=== PATIENT | female | born 1955 | race Caucasian/White ===

== ENCOUNTER 2021-09-02 10:43 | Emergency (ER) | payer MEDICARE, SELFPAY ==
[2021-09-02] VITALS (7 sets, daily range): BP systolic 152–210; BP diastolic 99–117; PULSE 92–130; RESP 16–19; TEMP 36.8; O2SAT 98–99
--- NOTE | ~2021-09-02 | XR_ITS ---
EXAMINATION: XR shoulder RT min 2V DATE: 09/02/2021 16:40 INDICATION: Right shoulder pain. TECHNIQUE: 4 views of right shoulder were obtained. COMPARISON: None. FINDINGS: Bone alignment is normal. No fracture. There is mild osteoarthritis of glenohumeral joint a nd acromioclavicular joint. IMPRESSION: 1. Mild polyarticular osteoarthritis. Reviewed, dictated and finalized at location A.
--- NOTE | ~2021-09-02 | CT_ITS ---
EXAMINATION: CT cervical spine wo con DATE: 09/02/2021 16:42 INDICATION: Neck pain. TECHNIQUE: Computed tomography (CT) of the cervical spine was performed without intravenous contrast. Automated exposure control and iterative reconstruction technique were employed. The dose-length pro duct was 173.68 mGy-cm. COMPARISON: None FINDINGS: There is mild scarring lung apices. There is a 1 mm retrolisthesis of C6 on C7. Vertebral b trino heights are normal. There is moderately decreased disc height at C5-C6 and severely decreased dis c height at C6-C7. There is 9 degrees dextrocurvature of cervical spine. There are small bilateral ma stoid effusions. The following disc levels are specifically discussed: C2-C3: There is mild left uncovertebral joint osteoarthritis. There is severe bilateral facet joint o steoarthritis. There is mild left neural foraminal stenosis. There is no central canal stenosis. C3-C4: There is mild right and moderate left uncovertebral joint osteoarthritis. There is severe bila teral facet joint osteoarthritis. There is mild right and moderate left neural foraminal stenosis. Th ere is mild central canal stenosis. C4-C5: There is no uncovertebral joint osteoarthritis. There is severe left facet joint osteoarthriti s. There is mild left neural foraminal stenosis. There is no central canal stenosis. C5-C6: There is severe right and mild left uncovertebral joint osteoarthritis. There is mild right an d severe left facet joint osteoarthritis. There is moderate left neural foraminal stenosis. There is mild central canal stenosis. C6-C7: There is mild bilateral uncovertebral joint osteoarthritis. There is mild bilateral facet join t osteoarthritis. There is mild right neural foraminal stenosis. There is mild central canal stenosis . C7-T1: There is no uncovertebral joint osteoarthritis. There is severe bilateral facet joint osteoart hritis. There is mild bilateral neural foraminal stenosis. There is no central canal stenosis. IMPRESSION: 1. No fracture. 2. Severe cervical spondylosis. Reviewed, dictated and finalized at location A.
--- NOTE | ~2021-09-02 | XR_ITS ---
EXAMINATION: XR shoulder LT min 2V DATE: 09/02/2021 16:41 INDICATION: Left shoulder pain. TECHNIQUE: 4 views of left shoulder were obtained. COMPARISON: None. FINDINGS: Bone alignment is normal. No fracture. There is mild osteoarthritis of glenohumeral joint a nd acromioclavicular joint. IMPRESSION: 1. Mild polyarticular osteoarthritis. Reviewed, dictated and finalized at location A.
--- NOTE | 2021-09-02 14:01 | PC.NURSE ---
This contracts attorney called pt to triage bay for VS check and comfort measures. Offered ice pack, pt declined. Pt has high BP readings, pt states she has not seen a doctor for a very long time and is upset due to waiting so long. Denies any CP or SOB.
--- NOTE | 2021-09-02 15:34 | ECG_ITS ---
Measurements Intervals [place] Rate: 113 P: -5 HI: 183 QRS: 38 QRSD: 83 T: 21 QT: 330 QTc: 453 Interpretive Statements SINUS TACHYCARDIA BASELINE ARTIFACT- I, III, AVL, AVF ABNORMAL ECG Electronically Signed On 09-02-2021 20:10:18 CDT by Lincoln Peoples D.O.
[2021-09-02] MEDS: diazePAM INJ (*CRX) 10 MG/2 ML SYRINGE 5 MG IM (15:58)
[2021-09-02] MEDS: ACETAMINOPHEN 500 MG TABLET 1000 MG PO (15:58)
--- NOTE | 2021-09-02 16:01 | ED.NECK ---
HPI - Neck Pain/Injury General Chief Complaint: Neck Pain/Injury Stated Complaint: Neck Pain Time Seen by Provider: 09/02/21 15:10 Source: patient Mode of arrival: ambulatory Limitations: no limitations History of Present Illness HPI Narrative: This is a 66 year old female that presents to the ER for neck pain present over the last couple of weeks. Reports she slipped and fell backwards onto the floor. Reports since that time she has had pain in her neck. She has not been evaluated for this yet. She thinks she might of hit her head. Denies any loss of consciousness. Also reports some pain in her bilateral shoulders. Denies vision changes, vomiting, numbness, or weakness. Related Data Allergies Allergy/AdvReac Type Severity Reaction Status Date / Time No Known Allergies Allergy Verified 09/02/21 15:21 Review of Systems Review of Systems: CONSTITUTIONAL: Denies fever EYES: Denies visual changes CARDIOVASCULAR: Denies chest pain RESPIRATORY: Denies dyspnea. GASTROINTESTINAL: Denies vomiting MUSCULOSKELETAL: Reports back pain, joint pain, and myalgia. NEUROLOGIC: Denies numbness, or weakness. PSYCHIATRIC: Reports anxiety All systems reviewed & are unremarkable except as noted in HPI and below PMFSH Past Medical History Medical History (Updated 09/02/21 @ 18:18 by Sarah Garcia PA-C) No active medical problems Social History Social History (Updated 09/02/21 @ 16:04 by Sarah Garcia PA-C) Substance use: never Exam Narrative: GENERAL: Well-appearing, well-nourished, and in no acute distress. HEAD: Normocephalic, atraumatic. EYES: PERRLA and EOMI. ENT: Nares clear, no rhinorrhea or epistaxis. Mucous membranes moist. Oropharynx without tonsillar hypertrophy exudate or other lesions. Bilateral TMs pearly yanes non-bulging NECK: Supple. No adenopathy or masses. CHEST: Clear to auscultation. No respiratory distress. No wheezes rales or rhonchi HEART: Regular rate and rhythm. No murmur heard. Normal peripheral pulses. EXTREMITIES: Normal range of motion. No edema. Strength equal in bilateral upper extremities (5/5) SKIN: Warm, dry, no rash. NEURO: No focal deficits. Alert and oriented x3. Cranial nerves II through XII grossly intact PSYCH: Normal mood and affect Course Vital Signs Vital signs: Vital Signs Temperature 98.3 F 09/02/21 10:48 Pulse Rate 107 H 09/02/21 10:48 Respiratory Rate 16 09/02/21 10:48 Blood Pressure 204/110 H 09/02/21 10:48 Pulse Oximetry 99 09/02/21 10:48 Temperature 98.3 F 09/02/21 10:48 Pulse Rate 92 09/02/21 17:54 Respiratory Rate 17 09/02/21 17:54 Blood Pressure 172/99 H 09/02/21 17:54 Pulse Oximetry 98 09/02/21 17:54 MDM - Neck Pain/Injury MDM Narrative Medical decision making narrative: Patient presents to the emergency department after a fall a couple of weeks ago with neck pain. She is neurologically intact. CT scan cervical spine is without acute findings. Also reporting pain to her shoulders. No acute findings on shoulder x-rays. Patient incidentally noted to be hypertensive. She is asymptomatic. No previous history of this, although patient has not been to a doctor in years. CBC and metabolic panel without concerning findings. EKG without acute changes. Blood pressure initially 200 systolic. Given dose of clonidine. Most recent blood pressure 152/102. Spoke with Dr. Phipps about patient and work-up. Would like patient started on lisinopril and will follow up in clinic. Patient is stable and felt appropriate for further outpatient evaluation. She was given warnings to return to the ER Lab Data Attestation: I reviewed the patient's lab results. Result diagrams: 09/02/21 15:56 09/02/21 15:56 Labs: Lab Results 09/02/21 09/02/21 Range/Units 15:56 15:56 WBC 5.8 (4.5-10.0) K/mm3 RBC 4.58 (4.2-5.4) M/mm3 Hgb 14.1 (12.0-15.0) g/dL Hct 41.5 (37.0-47.0) % MCV 90.6 (80-100) fl [facility]
[2021-09-02 16:11] LABS: Basophils Percent Auto 0.5 % (0.2-1.2); Eosinophils Percent Auto 0.2 % (0-4.4); Hematocrit 41.5 % (37.0-47.0); Hemoglobin 14.1 g/dL (12.0-15.0); Immature Granulocyte Absolute 0.02 K/mm3 (0.00-0.031); Immature Granulocyte Percent A 0.3 % (0-0.5); Lymphocytes Absolute Auto 1.17 K/mm3 (0.9-3.2); Lymphocytes Percent Auto 20.2 % (18.3-44.2); Mean Corpuscular Hemoglobin 30.8 pg (26-34); Mean Corpuscular Volume 90.6 fl (80-100); Mean Platelet Volume 9.4 fl (7.4-10.4); Monocytes Absolute Auto 0.8 K/mm3 (0.1-0.6); Monocytes Percent Auto 13.3 % (2.6-8.5); Neutrophils Absolute Auto 3.8 K/mm3 (1.3-6.7); Neutrophils Percent Auto 65.5 % (45.5-73.1); Platelet Count Result 186 k/mm3 (150-375); Red Blood Count 4.58 M/mm3 (4.2-5.4); Red Cell Distribution Width 12.1 % (11.5-14.5); White Blood Count 5.8 K/mm3 (4.5-10.0)
[2021-09-02 16:22] LABS: Anion Gap 15 mmol/L (8-16); Blood Urea Nitrogen 6 mg/dL (7-17); Calcium 9.6 mg/dL (8.4-10.2); Carbon Dioxide 28 mmol/L (22-30); Chloride 91 mmol/L (98-107); Estimated CRCL calculation 101 ml/min; Estimated Glomerular Filt Rate > 60; Glucose 120 mg/dL (65-110); Potassium 3.5 mmol/L (3.4-5.0); Sodium 134 mmol/L (137-145)
[2021-09-02] MEDS: cloNIDine HCL 0.1 MG TABLET PO (16:51)
== END 2021-09-02 18:35 | disposition home or self-care (01) ==
PROVIDERS: Physician Assistant; Emergency Provider Emergency Medicine; PCP Family Medicine
DX: S16.1XXA Strain of muscle, fascia and tendon at neck level, initial encounter (principal); I10 Essential (primary) hypertension; W19.XXXA Unspecified fall, initial encounter
CPT/HCPCS: 36415; 72125; 73030; 80048; 85025; 93005; 96372; 99284; A9270; J3360

== ENCOUNTER 2021-10-22 02:37 | Day surgery (SDC) | payer MEDICARE, SELFPAY ==
[2021-10-09 13:24] VITALS: BMI 20.9
[2021-10-22 13:19] VITALS: BP 194/104; PULSE 104; RESP 18; TEMP 36.5; O2SAT 98
--- NOTE | 2021-10-22 13:20 | P.PNAN_ITS ---
Anes - Initial Pre Proc Eval Procedure: Operation Date: 10/22/21 14:00 Proposed Procedures p Colonoscopy - Freddy Hoyt MD Date/Time: 10/22/21 13:20 Surgeon: Freddy Hoyt MD Pre Op Diagnosis: positive cologuard Patient Data Age: 66 Gender: F Height: 1.68 m Weight: 53.6 kg Last Vital Signs Temp 97.7 F 10/22/21 13:19 Pulse 104 H 10/22/21 13:19 Resp 18 10/22/21 13:19 BP 194/104 H 10/22/21 13:19 Pulse Ox 98 10/22/21 13:19 Allergies Allergy/AdvReac Type Severity Reaction Status Date / Time No Known Allergies Allergy Verified 10/22/21 13:18 Home Medications Medication Instructions Recorded Confirmed Type atorvastatin 10 mg tablet 10 mg PO QHS #90 tablet 09/26/21 10/22/21 Rx lisinopril 20 mg tablet 20 mg PO DAILY #90 tablet 09/26/21 10/22/21 Rx meloxicam 7.5 mg tablet 7.5 mg PO BID PRN #60 tablet 10/15/21 10/22/21 Rx Patient hx anesthesia problems: none Family hx anesthesia problems: none Results Review: All pre-operative results and documents have been reviewed as part of the pre-operative evaluation. [facility] Past Medical History Medical History (Updated 09/26/21 @ 10:40 by Karey Carlisle NP) Arthritis Cervical spondylosis Hyperlipidemia Hypertension No active medical problems Surgical History Surgical History H/O section (~1984) History of removal of ovarian cyst (~1975) Family History Family History Father Mesothelioma Social History Social History Social History: caffeine-2 cups of coffee daily Smoking status: Never smoker Alcohol intake: current Drinks per week: 20 Alcohol use details: Beer-daily Substance use: never Living arrangements: with family Gender identity (if verbalized by the patient): Female Sexual Orientation (if Verbalized by the Patient): Straight or Heterosexual Spiritual care concerns: No Agree to blood products: Yes Anes - Eval Final PreProcedure Day of Procedure 10/22/21 13:20 Patient weight: normal Heart: regular rate and rhythm Lungs: clear to auscultation Airway: Mallampati scale class II Neurological: alert and oriented Last oral intake: >/= 8 hours ASA classification: III Emergent: no Anesthetic plan: proceed Anesthesia type and monitoring: general GIVS and standard monitoring Results Review: All pre-operative results and documents have been reviewed as part of the pre-operative evaluation. Informed Consent: The patient's anesthetic plan and its attendant risks and benefits were discussed with the patient/family/POA. Questions were solicited and answers provided to the satisfaction of the patient/family/POA.
[2021-10-22] MEDS: LACTATED RINGERS 1,000 ML 150 ML IV CONT (13:25)
--- NOTE | 2021-10-22 13:41 | P.CONGI_ITS ---
Assessment and Plan Assessment and plan (1) Positive colorectal cancer screening using Cologuard test: Code(s): R19.5 - Other fecal abnormalities Status: Acute Assessment and Plan: Patient had recent positive Cologuard test. For this reason screening colonoscopy will be arranged. Further recommendations will be given after colonoscopy GI Consult Note Consult date/time: 10/22/21 13:41 HPI: Jacqui Ochoa is a 66 year old female Presents for screening colonoscopy. Patient recently had a Cologuard test that was found to be positive. Patient reports that her current weight appetite and bowel movements are normal. She denies abdominal pain. She has had no bleeding. Family history is noncontributory. Patient has never had a prior colonoscopy. Review of Systems Review of Systems: All systems reviewed & are unremarkable except as noted in HPI and below PMFSH Past Medical History Medical History (Updated 10/22/21 @ 13:43 by Freddy Hoyt MD) Arthritis Cervical spondylosis Hyperlipidemia Hypertension No active medical problems Surgical History Surgical History H/O section (~1984) History of removal of ovarian cyst (~1975) Family History Family History Father Mesothelioma Social History Social History Social History: caffeine-2 cups of coffee daily Smoking status: Never smoker Alcohol intake: current Drinks per week: 20 Alcohol use details: Beer-daily Substance use: never Living arrangements: with family Gender identity (if verbalized by the patient): Female Sexual Orientation (if Verbalized by the Patient): Straight or Heterosexual Spiritual care concerns: No Agree to blood products: Yes Meds Home Medications and Allergies Home Medications Medication Instructions Recorded Confirmed Type atorvastatin 10 mg tablet 10 mg PO QHS #90 tablet 09/26/21 10/22/21 Rx lisinopril 20 mg tablet 20 mg PO DAILY #90 tablet 09/26/21 10/22/21 Rx meloxicam 7.5 mg tablet 7.5 mg PO BID PRN #60 tablet 10/15/21 10/22/21 Rx Allergies Allergy/AdvReac Type Severity Reaction Status Date / Time No Known Allergies Allergy Verified 10/22/21 13:18 Vital Signs Vital Signs - 24 hr 10/22/21 13:19 Temperature 97.7 F Pulse Rate 104 H Respiratory Rate 18 Blood Pressure 194/104 H Pulse Oximetry 98 Exam Narrative: Physical exam reveals patient be alert. Vital signs stable. HEENT exam is unremarkable. Patient is anicteric. Lungs are clear to auscultation and percussion. Heart is without murmur or extra sounds. Abdomin al exam bowel sounds are present soft nontender with no organomegaly. Digital external rectal exam is normal.
[2021-10-22 14:30] VITALS: BP 106/68; PULSE 92; RESP 15; O2SAT 100
[2021-10-22 14:40] VITALS: BP 126/80; PULSE 102; RESP 22; O2SAT 100
[2021-10-22 14:50] VITALS: BP 160/99; PULSE 99; RESP 22; O2SAT 100
== END 2021-10-22 15:04 | disposition home or self-care (01) ==
PROVIDERS: PCP Internal Medicine; Visit Provider Internal Medicine Gastroenterology
PROC: 0DJD8ZZ Inspection of Lower Intestinal Tract, Via Natural or Artificial Opening Endoscopic (ICD-10-PCS; CPT 45378; principal; 2021-10-22 14:00)
DX: R19.5 Other fecal abnormalities (principal); D12.2 Benign neoplasm of ascending colon; D12.5 Benign neoplasm of sigmoid colon; K63.5 Polyp of colon; I10 Essential (primary) hypertension; E78.5 Hyperlipidemia, unspecified
CPT/HCPCS: 45385; 88305; J2704; J7120

== ENCOUNTER 2021-12-10 11:00 | Outpatient (RCR) | payer MEDICARE, SELFPAY ==
--- NOTE | 2021-10-03 09:01 | PTOPEVAL ---
PHYSICAL THERAPY EVALUATION AND PLAN OF CARE Thank you for referring Jacqui Ochoa to [facility].? The patient is scheduled to be seen for therapy? 2x/week for 4 weeks. Please review, sign, date and return this plan of care AUBREE. I agree with and certify that the following plan of care is medically necessary. Referring Physician Date Attending Provider: Karey Carlisle NP Evaluation Outpatient Past Medical History Cardiovascular History Hx Hypercholesterolemia Yes Hx Hypertension Yes: Lisinopril Reproductive History Hx Section Yes Hx Other Reproductive Disorders Yes: cyst removal Diagnosis neck pain Subjective Information reports cervical pain that is Query Text:As Reported By Patient/ more at the lower end then Family upper. She has pain down her arms and problems including inability to use her hands on occasion. She does state that about a month or so ago she slipped and fell and that's when some of these episodes started. States that these episodes have stopped since started taking meloxicam. States she has always had some type of pain in her neck but is never really bothered her. Also mentions that she has some balance problems and feels like she will fall over if she tries to bend over or work in the yard on uneven surfaces. Self Report Pain Assessment Spine, Cervical Reported Pain Level 1 Pain Description Aching Greatest Pain Intensity 5 Pain Aggravating Factors None Pain Behaviors None Pain Score Pain Score 1: Self Report Interventions Used Interventions Used By Clinicians Exercise,Manual Therapy Techniques Pain Relief Interventions Used By Inactivity/Rest Patient Cervical and Lumbar ROM Cervical ROM Cervical Flexion (0-60) 40 Query Text:Active in Degrees Cervical Extension (0-70) 30 Query Text:Active in Degrees Cervical Rotation Right (0-90) 45 Query Text:Active in Degrees Cervical Rotation Left (0-90) 45 Query Text:Active in Degrees Upper Extremity Range of Motion General Upper Extremity Range of Motion Reason Not Measured WFL/Left,WFL/Right Gross Upper Extremity Range of Motion limited at end ranges, no dianna
--- NOTE | 2021-10-21 08:38 | PCPTNOTE ---
Patient called & cancelled scheduled appointment this date due to having a colonoscopy tomorrow needing to prep for.
--- NOTE | 2021-10-30 10:58 | PTOPEVAL ---
PHYSICAL THERAPY PROGRESS REPORT Thank you for referring Jacqui Ochoa to [facility].? The patient is scheduled to be seen for therapy? 1x/week for 5 weeks. Please review, sign, date and return this plan of care AUBREE. I agree with and certify that the following plan of care is medically necessary. Referring Physician Date Attending Provider: Karey Carlisle NP Diagnosis neck pain Subjective Information states that from the start of Query Text:As Reported By Patient/ therapy her symptoms and pain Family are a littel better. States that at first she could not get out of bed by herself, but now she has figured out how to get up with her elbow. States she still has pain in her hands and some difficulty using her hands and difficulty lifting heavy pots. Self Report Pain Assessment Spine, Cervical Reported Pain Level 4 Pain Description Aching Pain Radiation Left Shoulder Pain Score Pain Score 4: Self Report Interventions Used Interventions Used By Clinicians Exercise,Heat,Manual Therapy Techniques Other Alleviating Interventions stretching Cervical and Lumbar ROM Cervical ROM Cervical Flexion (0-60) 60 Query Text:Active in Degrees Cervical Extension (0-70) 45 Query Text:Active in Degrees Cervical Rotation Right (0-90) 60 Query Text:Active in Degrees Cervical Rotation Left (0-90) 45 Query Text:Active in Degrees Upper Extremity Range of Motion General Upper Extremity Range of Motion Reason Not Measured WFL/Left,WFL/Right Gross Upper Extremity Range of Motion limited at end ranges, Comments especially behind the back - does have pain today with shoulder ROM whereas when we first started there was no pain Upper Extremity Muscle Strength Testing Scapular/Shoulder Bilateral Scapular Retraction - Middle Trapezius 2+ Poor + Shoulder Flexion Strength 4+ Good + Shoulder Abduction Strength 4+ Good + Shoulder Medial Rotation Strength 4+ Good + Shoulder Lateral Rotation Strength 4+ Good + Elbow/Forearm Bilateral Elbow Flexion Strength 5 Normal Elbow Extension Strength 4+ Good + Palpation Assessment Palpation Palpation improved tissue quality of upper trapezius, levator scapula; continues to have significant tenion in scalenes ;
--- NOTE | 2021-12-10 11:53 | PTOPEVAL ---
PHYSICAL THERAPY DISCHARGE NOTE Thank you for referring Jacqui Ochoa to [facility].? Please review, sign, date and return this plan of care AUBREE. I agree with and certify that the following plan of care is medically necessary. Referring Physician Date Attending Provider: Karey Carlisle, [employer]TER Discharge Diagnosis neck pain Subjective Information Continues to report that her Query Text:As Reported By Patient/ neck is doing fine. Family Consistently reports that her shoulders have pain and that her joints are stiff. She does state that it is different every day. She wonders about whether or not she should see a rustic terrazzo setter because she feels like she can get moving throughout the day and feeling really good but going to bed makes her so stiff. I recommend she follow up with her primary to have this discussion. Self Report Pain Assessment Left Arm(s) Reported Pain Level 5 Pain Description Tightness Spine, Cervical Reported Pain Level 2 Additional Pain Comments I can feel shoulder Pain Score Pain Score 5,2: Self Report Interventions Used Interventions Used By Clinicians Exercise Pain Relief Interventions Used By Exercise,Heat Patient Cervical and Lumbar ROM Cervical ROM Cervical Flexion (0-60) 60 Query Text:Active in Degrees Cervical Extension (0-70) 45 Query Text:Active in Degrees Cervical Rotation Right (0-90) 60 Query Text:Active in Degrees Cervical Rotation Left (0-90) 45 Query Text:Active in Degrees Upper Extremity Range of Motion General Upper Extremity Range of Motion Reason Not Measured WFL/Left,WFL/Right Gross Upper Extremity Range of Motion limited at end ranges, Comments especially behind the back - does have pain today with shoulder ROM whereas when we first started there was no pain; update 12/10/21: demonstrates stiffness in the shoulders today and demonstrates limited left shoulder ROM compared to the right shoulder Upper Extremity Muscle Strength Testing Scapular/Shoulder Bilateral Scapular Retraction - Middle Trapezius 2+ Poor + Shoulder Fle
== END 2021-12-10 16:59 | disposition home or self-care (01) ==
LOC: ANHPT 11:00
PROVIDERS: PCP Internal Medicine; Visit Provider Nurse Practitioner
DX: M47.812 Spondylosis without myelopathy or radiculopathy, cervical region (principal)
CPT/HCPCS: 97110; 97140; 97162

== ENCOUNTER 2024-04-26 08:40 | Outpatient (CLI) | payer MEDICARE, SELFPAY ==
[2024-04-26 13:27] LABS: Basophils Percent Auto 0.6 % (0.2-1.2); Eosinophils Absolute Auto 0.1 K/mm3 (0-0.3); Eosinophils Percent Auto 1.7 % (0-4.4); Hematocrit 40.3 % (37.0-47.0); Hemoglobin 13.2 g/dL (12.0-15.0); Immature Granulocyte Absolute 0.01 K/mm3 (0.00-0.031); Immature Granulocyte Percent A 0.2 % (0-0.5); Lymphocytes Absolute Auto 2.15 K/mm3 (0.9-3.2); Lymphocytes Percent Auto 41.7 % (18.3-44.2); Mean Corpuscular HGB Conc 32.8 g/dl (32-36); Mean Corpuscular Hemoglobin 30.7 pg (26-34); Mean Corpuscular Volume 93.7 fl (80-100); Mean Platelet Volume 11.6 fl (7.4-10.4); Monocytes Absolute Auto 0.6 K/mm3 (0.1-0.6); Monocytes Percent Auto 10.9 % (2.6-8.5); Neutrophils Absolute Auto 2.3 K/mm3 (1.3-6.7); Neutrophils Percent Auto 44.9 % (45.5-73.1); Platelet Count Result 192 k/mm3 (150-375); Red Cell Distribution Width 13.2 % (11.5-14.5); White Blood Count 5.2 K/mm3 (4.5-10.0)
[2024-04-26 13:34] LABS: Alanine Aminotransferase 37 U/L (6-35); Albumin Level 4.6 g/dL (3.5-5.1); Alkaline Phosphatase 68 U/L (38-126); Anion Gap 8 mmol/L (4-12); Aspartate Amino Transferase 89 U/L (14-36); Bilirubin,Total 0.7 mg/dL (0.2-1.3); Blood Urea Nitrogen 6 mg/dL (7-17); Calcium 9.4 mg/dL (8.4-10.2); Carbon Dioxide 29 mmol/L (22-30); Chloride 102 mmol/L (98-107); Cholesterol 149 mg/dL (0-200); Estimated Glomerular Filt Rate > 60; Glucose 96 mg/dL (65-110); HDL Direct 52 mg/dL; Potassium 3.8 mmol/L (3.4-5.0); Sodium 139 mmol/L (137-145); Triglycerides 126 mg/dL (<150)
[2024-04-26 13:45] LABS: LDL Cholesterol Direct 72 mg/dL
[2024-04-26 14:07] LABS: Vitamin D 25 Hydroxy 77.4 ng/mL
== END 2024-04-26 08:41 | disposition home or self-care (01) ==
PROVIDERS: PCP Internal Medicine; Visit Provider Nurse Practitioner
DX: E78.2 Mixed hyperlipidemia (principal); Z13.29 Encounter for screening for other suspected endocrine disorder; E78.5 Hyperlipidemia, unspecified; E55.9 Vitamin D deficiency, unspecified
CPT/HCPCS: 36415; 80053; 80061; 82306; 85025

== ENCOUNTER 2024-05-03 13:56 | Outpatient (CLI) | payer MEDICARE, SELFPAY ==
--- NOTE | ~2024-05-03 | MM_ITS ---
EXAMINATION: MM screening michael BI w selam HISTORY: Screening TECHNIQUE: Craniocaudal and mediolateral oblique 3-D tomosynthesis images were obtained and synthetic 2-D images were generated. CAD analysis was submitted and interpreted. COMPARISON: No prior mammogram is available for comparison at this institution. BREAST PARENCHYMAL COMPOSITION: Dense: The breasts are extremely dense, which lowers the sensitivity of mammography. FINDINGS: There are benign bilateral breast calcifications. There is no evidence of suspicious mass, calcification, or architectural distortion to suggest malignancy in either breast. There has been no suspicious interval change. IMPRESSION: 1. No mammographic evidence of malignancy. 2. Recommend routine screening mammography in one year. BI-RADS Category 2: Benign finding(s). Reviewed, dictated and finalized at location B.
== END 2024-05-03 13:57 ==
LOC: MICIMG 13:56
PROVIDERS: PCP Internal Medicine; Visit Provider Nurse Practitioner
DX: Z12.31 Encounter for screening mammogram for malignant neoplasm of breast (principal)
CPT/HCPCS: 77063; 77067

== ENCOUNTER 2024-08-03 10:36 | Outpatient (CLI) | payer MEDICARE, SELFPAY ==
[2024-08-03 21:11] LABS: Cholesterol 140 mg/dL (0-200); HDL Direct 45 mg/dL; Triglycerides 121 mg/dL (<150)
[2024-08-03 21:22] LABS: LDL Cholesterol Direct 67 mg/dL
[2024-08-03 21:24] LABS: Vitamin D 25 Hydroxy 83.3 ng/mL
== END 2024-08-03 10:37 | disposition home or self-care (01) ==
PROVIDERS: PCP Internal Medicine; Visit Provider Nurse Practitioner
DX: E55.9 Vitamin D deficiency, unspecified (principal); E78.5 Hyperlipidemia, unspecified
CPT/HCPCS: 36415; 80061; 82306

== ENCOUNTER 2024-08-29 00:28 | Day surgery (SDC) | payer MEDICARE, SELFPAY ==
[2024-08-15 12:02] VITALS: BMI 18.8
[2024-08-29 07:47] VITALS: BP 149/83; PULSE 97; RESP 16; TEMP 36.9; O2SAT 100; BMI 17.7
[2024-08-29] MEDS: LACTATED RINGERS 1,000 ML 150 ML IV CONT (08:05)
--- NOTE | 2024-08-29 08:13 | WPDANESEPPF ---
Anes - Initial Pre Proc Eval Procedure: Operation Date: 08/29/24 09:00 Proposed Procedures p Screening Colonoscopy - Rohan Cifuentes MD Date/Time: 08/29/24 08:13 Surgeon: Rohan Cifuentes MD Pre Op Diagnosis: hx colon polyps Patient Data Age: 69 Gender: F Height: 1.68 m Weight: 49.8 kg Last Vital Signs Temp 36.9 C 08/29/24 07:47 Pulse 97 08/29/24 07:47 Resp 16 08/29/24 07:47 BP 149/83 H 08/29/24 07:47 Pulse Ox 100 08/29/24 07:47 O2 Del Method Room Air 08/29/24 07:47 Allergies Allergy/AdvReac Type Severity Reaction Status Date / Time No Known Allergies Allergy Verified 08/29/24 07:53 Home Medications Medication Instructions Recorded Confirmed Type adalimumab 40 mg/0.4 mL 40 mg subcut Q14D 09/30/22 08/15/24 History subcutaneous pen kit (Humira(CF) Pen) folic acid 1 mg tablet 1 mg PO DAILY 09/30/22 08/15/24 History methotrexate sodium 2.5 mg tablet 20 mg PO WEEKLY 09/30/22 08/15/24 History CBD gummies 1 piece BYMOUTH QHS PRN Insomnia 09/02/23 08/29/24 History amlodipine 10 mg tablet 10 mg PO DAILY #90 tabs 04/19/24 08/15/24 Rx atorvastatin 10 mg tablet 10 mg PO DAILY 08/15/24 08/15/24 History metoprolol succinate 100 mg 100 mg PO DAILY 08/15/24 08/15/24 History tablet,extended release 24 hr meloxicam 7.5 mg tablet 7.5 mg PO DAILY #180 tabs 08/18/24 08/29/24 Rx lisinopril 40 mg tablet 40 mg PO DAILY #90 tabs 08/24/24 08/29/24 Rx Patient hx anesthesia problems: none Family hx anesthesia problems: none Results Review: All pre-operative results and documents have been reviewed as part of the pre-operative evaluation. [facility] Past Medical History Medical History Arthritis Cervical spondylosis Hyperlipidemia Hypertension No active medical problems Rheumatoid arthritis Rheumatoid factor positive Surgical History Surgical History H/O section (~1984) History of removal of ovarian cyst (~1975) Family History Family History Father Mesothelioma Social History Social History Social History: caffeine-2 cups of coffee daily Smoking status: Never smoker Alcohol intake: never Drinks per week: 20 Alcohol use details: Beer-daily Substance use: never Substance use type: does not use Other substance usage details: CBD gummy at bedtime Lack of Transportation: No Lack of Food: Never True Current Housing: I Have Housing Concerned About Future Housing: No Difficulty Paying Gas/Electric Bills: No Difficulty Paying for Meds: No Currently Unemployed: No Education: Master's Degree or Higher Difficulty w/ Childcare or Family Care: No Living arrangements: with family Gender identity (if verbalized by the patient): Female Sexual Orientation (if Verbalized by the Patient): Straight or Heterosexual Spiritual care concerns: No Agree to blood products: Yes Anes - Eval Final PreProcedure Day of Procedure 08/29/24 08:13 Patient weight: normal Heart: regular rate and rhythm Lungs: clear to auscultation Airway: Mallampati scale class II Neurological: alert and oriented Last oral intake: >/= 8 hours ASA classification: III Emergent: no Anesthetic plan: proceed Anesthesia type and monitoring: general GIVS and standard monitoring Results Review: All pre-operative results and documents have been reviewed as part of the pre-operative evaluation. Informed Consent: The patient's anesthetic plan and its attendant risks and benefits were discussed with the patient/family/POA. Questions were solicited and answers provided to the satisfaction of the patient/family/POA.
--- NOTE | 2024-08-29 08:55 | PM.IMHP ---
H&P: HPI History of Present Illness Date/Time: 08/29/24 08:55 Chief Complaint: History of colon polyps Narrative: This patient has a history of colonic polyps. Her last colonoscopy was 3 years ago. Here for surveillance colonoscopy. Review of Systems Review of Systems: All systems reviewed & are unremarkable except as noted in HPI and below PMFSH Past Medical History Medical History Arthritis Cervical spondylosis Hyperlipidemia Hypertension No active medical problems Rheumatoid arthritis Rheumatoid factor positive Surgical History Surgical History H/O section (~1984) History of removal of ovarian cyst (~1975) Family History Family History Father Mesothelioma Social History Social History Social History: caffeine-2 cups of coffee daily Smoking status: Never smoker Alcohol intake: never Drinks per week: 20 Alcohol use details: Beer-daily Substance use: never Substance use type: does not use Other substance usage details: CBD gummy at bedtime Lack of Transportation: No Lack of Food: Never True Current Housing: I Have Housing Concerned About Future Housing: No Difficulty Paying Gas/Electric Bills: No Difficulty Paying for Meds: No Currently Unemployed: No Education: Master's Degree or Higher Difficulty w/ Childcare or Family Care: No Living arrangements: with family Gender identity (if verbalized by the patient): Female Sexual Orientation (if Verbalized by the Patient): Straight or Heterosexual Spiritual care concerns: No Agree to blood products: Yes Meds Home Medications and Allergies Home Medications Medication Instructions Recorded Confirmed Type adalimumab 40 mg/0.4 mL 40 mg subcut Q14D 09/30/22 08/15/24 History subcutaneous pen kit (Humira(CF) Pen) folic acid 1 mg tablet 1 mg PO DAILY 09/30/22 08/15/24 History methotrexate sodium 2.5 mg tablet 20 mg PO WEEKLY 09/30/22 08/15/24 History CBD gummies 1 piece BYMOUTH QHS PRN Insomnia 09/02/23 08/29/24 History amlodipine 10 mg tablet 10 mg PO DAILY #90 tabs 04/19/24 08/15/24 Rx atorvastatin 10 mg tablet 10 mg PO DAILY 08/15/24 08/15/24 History metoprolol succinate 100 mg 100 mg PO DAILY 08/15/24 08/15/24 History tablet,extended release 24 hr meloxicam 7.5 mg tablet 7.5 mg PO DAILY #180 tabs 08/18/24 08/29/24 Rx lisinopril 40 mg tablet 40 mg PO DAILY #90 tabs 08/24/24 08/29/24 Rx Allergies Allergy/AdvReac Type Severity Reaction Status Date / Time No Known Allergies Allergy Verified 08/29/24 07:53 Vital Signs Vital Signs - 24 hr 08/29/24 07:47 Temperature 98.4 F Pulse Rate 97 Respiratory Rate 16 Blood Pressure 149/83 H Pulse Oximetry 100 Oxygen Delivery Room Air Assessment and Plan Assessment and plan (1) History of colon polyps: Code(s): Z86.010 - Personal history of colon polyps Status: Acute Plan Patient is deemed a good candidate for colonoscopy. Will proceed.
[2024-08-29 09:28] VITALS: BP 100/60; PULSE 72; RESP 18; O2SAT 100
[2024-08-29 09:38] VITALS: BP 102/58; PULSE 70; RESP 22; O2SAT 97
[2024-08-29 09:48] VITALS: BP 121/69; PULSE 63; RESP 19; O2SAT 97
== END 2024-08-29 10:13 | disposition home or self-care (01) ==
PROVIDERS: PCP Internal Medicine; Referring Provider Internal Medicine Gastroenterology; Visit Provider Internal Medicine Gastroenterology
PROC: 0DJD8ZZ Inspection of Lower Intestinal Tract, Via Natural or Artificial Opening Endoscopic (ICD-10-PCS; CPT 45378; principal; 2024-08-29 09:00)
DX: Z12.11 Encounter for screening for malignant neoplasm of colon (principal); I10 Essential (primary) hypertension; E78.5 Hyperlipidemia, unspecified; M43.02 Spondylolysis, cervical region; F12.90 Cannabis use, unspecified, uncomplicated; Z79.620 Long term (current) use of immunosuppressive biologic; Z98.890 Other specified postprocedural states; Z86.0100 Personal history of colon polyps, unspecified; Z80.8 Family history of malignant neoplasm of other organs or systems
CPT/HCPCS: G0105; J2003; J2704; J7120

== ENCOUNTER 2024-08-31 10:13 | Outpatient (CLI) | payer MEDICARE, SELFPAY ==
--- NOTE | ~2024-08-31 | DEXA_ITS ---
Bone Density Report Name: IVAN FIGUEROA Age: 69 Sex: Female Ethnicity: White Date of : 1955 Indication: postmenopausal; screening for osteoporosis; height loss; rheumatoid arthritis; Referring Provider: CONNER VALIENTE Study: Bone densitometry was performed. Exam Date: August 31, 2024 Accession number: [id number] Bone Density: Region BMD T-score Z-score Classification AP Spine(L1-L4) 1.041 -0.1 2.0 Normal Femoral Neck (Left) 0.569 -2.5 -0.8 Osteoporosis Total Hip (Left) 0.671 -2.2 -0.7 Osteopenia Femoral Neck (Right) 0.555 -2.7 -0.9 Osteoporosis Total Hip (Right) 0.734 -1.7 -0.2 Osteopenia Total Hip Mean 0.703 -2.0 -0.5 Osteopenia World Health Organization criteria for BMD impression classify patients as: Normal (T-score at or above -1.0), Osteopenia (T-score between -1.0 and -2.5), or Osteoporosis (T-score at or below -2.5). 10-year Fracture Risk: FRAX not reported because: Some T-score for Spine Total or Hip Total or Femoral Neck at or below -2.5 Clinical Information Provided by Patient: Has rheumatoid arthritis Has used the following medications: Vitamin D Patient maximum height was 67.0 Drinks caffeinated beverages Onset of menses at age 13 Number of children 3 Impression: The patient has osteoporosis, based on the Right Femoral Neck T-score. Discussion: INCREASED RISK OF FRACTURE. BONE DENSITY IS UNDESIRABLY LOW AT ONE OR MORE SKELETAL SITES, CONSISTENT WITH POSTMENOPAUSAL OSTEOPOROSIS. This patient's lowest T-score meets the World Health Organization's (WHO) criteria for osteoporosis at one or more sites (T-score -2.5 or below). In untreated patients, the risk of osteoporotic fracture increases approximately two-fold for each 1.0 SD decrease in T-score. Low bone density is not the only risk factor for fracture; also consider factors such as patient's age, frailty or poor health, risk of falling, risk of injury, previous osteoporotic fracture, family history of osteoporosis, cigarette smoking, low body weight, etc. Not everyone with low bone mineral density has osteoporosis; osteomalacia and other metabolic bone disorders should also be considered. Patients who have osteoporosis should be evaluated for specific diseases and conditions (secondary causes) that may cause or contribute to bone loss. The [place] [employer] (AACE) and National Osteoporosis Foundation (NOF) recommend pharmacologic intervention for all postmenopausal women whose T-score is in this range. The patient should follow a healthful lifestyle (good nutrition with adequate calcium and vitamin D, and appropriate weight-bearing exercise). Follow-Up: Consider a repeat BMD and Vertebral Fracture Assessment (VFA) exam in 2 years or sooner if medically necessary, to reassess this p
== END 2024-08-31 10:14 | disposition home or self-care (01) ==
LOC: ANHIMG 10:14
PROVIDERS: PCP Internal Medicine; Visit Provider Nurse Practitioner
DX: M81.0 Age-related osteoporosis without current pathological fracture (principal); M85.89 Other specified disorders of bone density and structure, multiple sites; Z78.0 Asymptomatic menopausal state
CPT/HCPCS: 77080

== ENCOUNTER 2024-10-27 09:40 | Outpatient (RCR) | payer MEDICARE, SELFPAY ==
[2024-09-05 14:45] LABS: Alanine Aminotransferase 23 U/L (6-35); Albumin Level 4.2 g/dL (3.5-5.1); Alkaline Phosphatase 71 U/L (38-126); Anion Gap 6 mmol/L (4-12); Aspartate Amino Transferase 42 U/L (14-36); Bilirubin,Total 0.5 mg/dL (0.2-1.3); Blood Urea Nitrogen 12 mg/dL (7-17); Calcium 9.1 mg/dL (8.4-10.2); Carbon Dioxide 32 mmol/L (22-30); Chloride 100 mmol/L (98-107); Estimated Glomerular Filt Rate > 60; Glucose 118 mg/dL (65-110); Potassium 4.7 mmol/L (3.4-5.0); Sodium 138 mmol/L (137-145)
[2024-10-27 12:42] LABS: Basophils Percent Auto 0.7 % (0.2-1.2); Eosinophils Absolute Auto 0.1 K/mm3 (0-0.3); Hematocrit 39.6 % (37.0-47.0); Hemoglobin 12.9 g/dL (12.0-15.0); Immature Granulocyte Absolute 0.02 K/mm3 (0.00-0.031); Immature Granulocyte Percent A 0.4 % (0-0.5); Lymphocytes Absolute Auto 2.27 K/mm3 (0.9-3.2); Lymphocytes Percent Auto 41.3 % (18.3-44.2); Mean Corpuscular HGB Conc 32.6 g/dl (32-36); Mean Corpuscular Hemoglobin 30.8 pg (26-34); Mean Corpuscular Volume 94.5 fl (80-100); Mean Platelet Volume 11.9 fl (7.4-10.4); Monocytes Absolute Auto 0.5 K/mm3 (0.1-0.6); Monocytes Percent Auto 9.1 % (2.6-8.5); Neutrophils Absolute Auto 2.6 K/mm3 (1.3-6.7); Neutrophils Percent Auto 46.5 % (45.5-73.1); Platelet Count Result 165 k/mm3 (150-375); Red Blood Count 4.19 M/mm3 (4.2-5.4); Red Cell Distribution Width 12.8 % (11.5-14.5); White Blood Count 5.5 K/mm3 (4.5-10.0)
[2024-10-27 13:10] LABS: Alanine Aminotransferase 31 U/L (6-35); Albumin Level 4.4 g/dL (3.5-5.1); Alkaline Phosphatase 56 U/L (38-126); Anion Gap 4 mmol/L (4-12); Aspartate Amino Transferase 57 U/L (14-36); Bilirubin,Total 0.8 mg/dL (0.2-1.3); Blood Urea Nitrogen 10 mg/dL (7-17); Calcium 9.4 mg/dL (8.4-10.2); Carbon Dioxide 32 mmol/L (22-30); Chloride 102 mmol/L (98-107); Estimated Glomerular Filt Rate > 60; Glucose 107 mg/dL (65-110); Potassium 4.8 mmol/L (3.4-5.0); Sodium 138 mmol/L (137-145)
== END 2024-12-04 23:59 | disposition home or self-care (01) ==
LOC: ANHGOSHLAB 09:40
PROVIDERS: PCP Internal Medicine
DX: Z51.81 Encounter for therapeutic drug level monitoring (principal); Z79.899 Other long term (current) drug therapy
CPT/HCPCS: 36415; 80053; 85025